=== PATIENT | female | born 1930 | race Caucasian/White ===

== ENCOUNTER → 2019-01-09 | Outpatient (RCR) | payer BC | END | disposition home or self-care (01) | LOC: WCC 13:21 | DX: L97.823 Non-pressure chronic ulcer of other part of left lower leg with necrosis of muscle (principal); L97.822 Non-pressure chronic ulcer of other part of left lower leg with fat layer exposed; R60.9 Edema, unspecified; Z79.82 Long term (current) use of aspirin; Z79.899 Other long term (current) drug therapy; R05 Cough; Z99.81 Dependence on supplemental oxygen; M16.0 Bilateral primary osteoarthritis of hip; Z88.8 Allergy status to other drugs, medicaments and biological substances | CPT/HCPCS: 11043 ==

== ENCOUNTER 2019-01-21 12:03 | Outpatient (RCR) | payer BC ==
[~2019-01-21] VITALS: Ht 152.4 cm; Wt 68.0 kg
[2019-01-29] MEDS ORDERED: Lidocaine 4% Top Soln 50ml TOPIC ONE (11:15)
== END 2019-02-09 | disposition home or self-care (01) ==
LOC: WCC 12:03
DX: L97.822 Non-pressure chronic ulcer of other part of left lower leg with fat layer exposed (principal); I87.312 Chronic venous hypertension (idiopathic) with ulcer of left lower extremity; R60.9 Edema, unspecified; Z99.81 Dependence on supplemental oxygen; Z88.2 Allergy status to sulfonamides; M16.0 Bilateral primary osteoarthritis of hip; Z79.82 Long term (current) use of aspirin; Z79.899 Other long term (current) drug therapy
CPT/HCPCS: 11042; 11045; 29580

== ENCOUNTER 2019-02-18 12:51 | Outpatient (RCR) | payer BC ==
[~2019-02-18] VITALS: Ht 152.4 cm; Wt 68.0 kg
== END 2019-03-11 | disposition home or self-care (01) ==
LOC: WCC 12:51
DX: L97.321 Non-pressure chronic ulcer of left ankle limited to breakdown of skin (principal); I87.312 Chronic venous hypertension (idiopathic) with ulcer of left lower extremity; L97.822 Non-pressure chronic ulcer of other part of left lower leg with fat layer exposed; R60.9 Edema, unspecified; L03.116 Cellulitis of left lower limb; Z79.82 Long term (current) use of aspirin; Z79.899 Other long term (current) drug therapy; M16.0 Bilateral primary osteoarthritis of hip
CPT/HCPCS: 11042; 11043; 11045; 11046; 87070; 87181; 87205

== ENCOUNTER 2019-03-18 11:01 | Outpatient (RCR) | payer BC | END 2019-04-11 | disposition home or self-care (01) | LOC: WCC 11:01 | DX: L97.822 Non-pressure chronic ulcer of other part of left lower leg with fat layer exposed (principal); L03.116 Cellulitis of left lower limb; R60.9 Edema, unspecified; I87.312 Chronic venous hypertension (idiopathic) with ulcer of left lower extremity; Z88.2 Allergy status to sulfonamides; Z79.899 Other long term (current) drug therapy; Z79.82 Long term (current) use of aspirin; M16.0 Bilateral primary osteoarthritis of hip | CPT/HCPCS: 11042; 11045; 15271; 15272; 29581; Q4106; Q4101 ==

== ENCOUNTER 2019-04-15 11:04 | Outpatient (RCR) | payer BC | END 2019-05-11 | disposition home or self-care (01) | LOC: WCC 11:04 | DX: L97.822 Non-pressure chronic ulcer of other part of left lower leg with fat layer exposed (principal); L03.116 Cellulitis of left lower limb; R60.9 Edema, unspecified; I87.312 Chronic venous hypertension (idiopathic) with ulcer of left lower extremity; Z88.2 Allergy status to sulfonamides | CPT/HCPCS: 11042; 11045; 15271; 29581; G0463; Q4106; Q4101 ==

== ENCOUNTER 2019-05-13 08:31 | Outpatient (RCR) | payer BC ==
[~2019-05-13] VITALS: Ht 152.4 cm; Wt 68.0 kg
== END 2019-06-11 | disposition home or self-care (01) ==
LOC: WCC 08:31
DX: L97.822 Non-pressure chronic ulcer of other part of left lower leg with fat layer exposed (principal); L03.116 Cellulitis of left lower limb; R60.9 Edema, unspecified; I87.312 Chronic venous hypertension (idiopathic) with ulcer of left lower extremity; Z88.2 Allergy status to sulfonamides; M16.0 Bilateral primary osteoarthritis of hip; Z79.82 Long term (current) use of aspirin; Z79.899 Other long term (current) drug therapy
CPT/HCPCS: 11042; 11045; 15271; G0463; Q4106; Q4101

== ENCOUNTER 2019-06-17 11:10 | Outpatient (RCR) | payer BC | END 2019-07-12 | disposition home or self-care (01) | LOC: WCC 11:10 | DX: L97.822 Non-pressure chronic ulcer of other part of left lower leg with fat layer exposed (principal); L03.116 Cellulitis of left lower limb; R60.9 Edema, unspecified; I87.312 Chronic venous hypertension (idiopathic) with ulcer of left lower extremity; Z88.2 Allergy status to sulfonamides; M16.0 Bilateral primary osteoarthritis of hip; Z79.82 Long term (current) use of aspirin; Z79.899 Other long term (current) drug therapy | CPT/HCPCS: 11042; 11045; 15271; Q4106; Q4101 ==

== ENCOUNTER 2019-07-11 10:49 | Outpatient (CLI) | payer BC ==
--- NOTE | 2019-07-11 14:39 | Diagnostic Imaging Report ---
Indication: Left leg nonhealing wounds edema and pain Technique: Grayscale and duplex images of the bilateral lower extremity artery Comparison: none Findings: Exam is somewhat limited due to patient body habitus. On the right, biphasic waveforms with sharp systolic peaks are demonstrated at the level of the common femoral artery. Proximal superficial femoral artery waveforms are monophasic, but systolic peaks remain sharp without diminution of flow velocities. There is focal area of elevated flow velocities in the mid superficial femoral artery, beyond which waveforms are dampened and flow velocities are decreased. There is similar dampening of the waveforms and decreased flow velocities involving the tibial vessels. On the left, common femoral, profunda femoral, and superficial femoral artery waveforms are monophasic. There is an area of flow velocity elevation in the distal superficial femoral artery. There is some loss of amplitude of the popliteal waveforms, and further loss of amplitude of the tibial vessel waveforms. 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 On the left, elevated flow velocities in the distal superficial femoral artery suggest significant stenosis. There is dampening of the distal waveforms. There is increased dampening of the distal tibial vessel waveforms suggesting ischemia at rest, and significant tibial vessel disease is possible
--- NOTE | 2019-07-11 14:46 | Diagnostic Imaging Report ---
Indication: Left leg pain and edema, open wound, nonhealing Technique: Grayscale and duplex images of the bilateral lower extremity veins Comparison: none Findings: Bilaterally, grayscale and duplex images demonstrate no evidence of intraluminal thrombus. Doppler waveforms demonstrate normal phasicity and augmentation response. There is evidence of reflux within the greater saphenous vein, superficial femoral vein, and popliteal vein. There is also evidence of reflux in the left common femoral vein, left greater saphenous vein, left superficial femoral vein and popliteal vein. Normal compressibility. Impression: Negative for evidence of lower extremity deep venous thrombosis bilaterally Evidence of bilateral superficial and deep vein reflux, presumably indicating valvular insufficiency.
== END 2019-07-11 12:49 | disposition home or self-care (01) ==
LOC: VAS 10:49
DX: R60.0 Localized edema (principal); M79.605 Pain in left leg
CPT/HCPCS: 93925; 93970

== ENCOUNTER 2019-07-15 09:18 | Outpatient (RCR) | payer BC | END 2019-08-10 | disposition home or self-care (01) | LOC: WCC 09:18 | DX: L97.822 Non-pressure chronic ulcer of other part of left lower leg with fat layer exposed (principal); L03.116 Cellulitis of left lower limb; R60.9 Edema, unspecified; I87.312 Chronic venous hypertension (idiopathic) with ulcer of left lower extremity; M16.0 Bilateral primary osteoarthritis of hip; Z79.82 Long term (current) use of aspirin | CPT/HCPCS: 11042; 11045; 87070; 87205 ==

== ENCOUNTER 2019-08-12 10:15 | Outpatient (RCR) | payer BC ==
[~2019-08-12] VITALS: Ht 152.4 cm; Wt 68.0 kg
[2019-09-02] MEDS ORDERED: Lidocaine 2% 20mg/ml/EPI 0.01mg/ml 20ml IV ONE (16:45)
== END 2019-09-10 | disposition home or self-care (01) ==
LOC: WCC 10:15
DX: L97.822 Non-pressure chronic ulcer of other part of left lower leg with fat layer exposed (principal); L03.116 Cellulitis of left lower limb; R60.9 Edema, unspecified; I87.312 Chronic venous hypertension (idiopathic) with ulcer of left lower extremity; L88 Pyoderma gangrenosum; Z88.2 Allergy status to sulfonamides; M16.0 Bilateral primary osteoarthritis of hip; Z79.82 Long term (current) use of aspirin; Z79.899 Other long term (current) drug therapy
CPT/HCPCS: 11042; 11045

== ENCOUNTER 2019-09-16 11:31 | Outpatient (RCR) | payer BC | END 2019-10-10 | disposition home or self-care (01) | LOC: WCC 11:31 | DX: L97.822 Non-pressure chronic ulcer of other part of left lower leg with fat layer exposed (principal); L03.116 Cellulitis of left lower limb; R60.9 Edema, unspecified; I87.312 Chronic venous hypertension (idiopathic) with ulcer of left lower extremity; L88 Pyoderma gangrenosum; L97.819 Non-pressure chronic ulcer of other part of right lower leg with unspecified severity; Z88.2 Allergy status to sulfonamides; I70.248 Atherosclerosis of native arteries of left leg with ulceration of other part of lower leg | CPT/HCPCS: 11042; 11043; 11045; 11046; 87070; 87181; 87205 ==

== ENCOUNTER 2019-10-14 11:09 | Outpatient (RCR) | payer BC | END 2019-11-10 | disposition home or self-care (01) | LOC: WCC 11:09 | DX: L97.822 Non-pressure chronic ulcer of other part of left lower leg with fat layer exposed (principal); L03.116 Cellulitis of left lower limb; R60.9 Edema, unspecified; I87.312 Chronic venous hypertension (idiopathic) with ulcer of left lower extremity; L88 Pyoderma gangrenosum; L97.819 Non-pressure chronic ulcer of other part of right lower leg with unspecified severity; Z88.2 Allergy status to sulfonamides; I70.248 Atherosclerosis of native arteries of left leg with ulceration of other part of lower leg; Z91.14 Patient's other noncompliance with medication regimen; M19.90 Unspecified osteoarthritis, unspecified site | CPT/HCPCS: 11042; 11043; 11045; 11046; 87070; 87181; 87205 ==

== ENCOUNTER 2019-11-11 10:13 | Outpatient (RCR) | payer BC ==
[~2019-11-11] VITALS: Ht 152.4 cm; Wt 68.0 kg
== END 2019-12-10 | disposition home or self-care (01) ==
LOC: WCC 10:13
DX: L97.822 Non-pressure chronic ulcer of other part of left lower leg with fat layer exposed (principal); L03.116 Cellulitis of left lower limb; R60.9 Edema, unspecified; I87.312 Chronic venous hypertension (idiopathic) with ulcer of left lower extremity; L88 Pyoderma gangrenosum; L97.819 Non-pressure chronic ulcer of other part of right lower leg with unspecified severity; Z88.2 Allergy status to sulfonamides; I70.248 Atherosclerosis of native arteries of left leg with ulceration of other part of lower leg; M16.0 Bilateral primary osteoarthritis of hip; Z79.82 Long term (current) use of aspirin; Z79.899 Other long term (current) drug therapy
CPT/HCPCS: 11042; 11045

== ENCOUNTER 2019-12-16 11:13 | Outpatient (RCR) | payer BC | END 2020-01-10 | disposition home or self-care (01) | LOC: WCC 11:13 | DX: L97.822 Non-pressure chronic ulcer of other part of left lower leg with fat layer exposed (principal); L03.116 Cellulitis of left lower limb; R60.9 Edema, unspecified; I87.312 Chronic venous hypertension (idiopathic) with ulcer of left lower extremity; L88 Pyoderma gangrenosum; L97.819 Non-pressure chronic ulcer of other part of right lower leg with unspecified severity; Z88.2 Allergy status to sulfonamides; I70.248 Atherosclerosis of native arteries of left leg with ulceration of other part of lower leg | CPT/HCPCS: 11042; 11045; 87070; 87181; 87205 ==

== ENCOUNTER 2020-01-13 13:17 | Outpatient (RCR) | payer BC | END 2020-02-10 | disposition home or self-care (01) | LOC: WCC 13:17 | DX: L97.822 Non-pressure chronic ulcer of other part of left lower leg with fat layer exposed (principal); L03.116 Cellulitis of left lower limb; R60.9 Edema, unspecified; I87.312 Chronic venous hypertension (idiopathic) with ulcer of left lower extremity; L88 Pyoderma gangrenosum; L97.819 Non-pressure chronic ulcer of other part of right lower leg with unspecified severity; Z88.2 Allergy status to sulfonamides; I70.248 Atherosclerosis of native arteries of left leg with ulceration of other part of lower leg | CPT/HCPCS: 11042; 11045 ==

== ENCOUNTER 2020-02-24 13:09 | Outpatient (RCR) | payer BC | END 2020-03-11 | disposition home or self-care (01) | LOC: WCC 13:09 | DX: L97.822 Non-pressure chronic ulcer of other part of left lower leg with fat layer exposed (principal); L03.116 Cellulitis of left lower limb; R60.9 Edema, unspecified; I87.312 Chronic venous hypertension (idiopathic) with ulcer of left lower extremity; L88 Pyoderma gangrenosum; L97.819 Non-pressure chronic ulcer of other part of right lower leg with unspecified severity; Z88.2 Allergy status to sulfonamides; I70.248 Atherosclerosis of native arteries of left leg with ulceration of other part of lower leg; M16.0 Bilateral primary osteoarthritis of hip; Z79.82 Long term (current) use of aspirin; Z79.899 Other long term (current) drug therapy | CPT/HCPCS: 11042; 11045; 87070; 87181; 87205 ==

== ENCOUNTER 2020-03-16 13:05 | Outpatient (RCR) | payer BC ==
[~2020-03-16] VITALS: Ht 152.4 cm; Wt 68.0 kg
[2020-04-08] MEDS ORDERED: Lidocaine 4% Top Soln 50ml TOPIC ONE (16:00)
== END 2020-04-11 | disposition home or self-care (01) ==
LOC: WCC 13:05
DX: L97.822 Non-pressure chronic ulcer of other part of left lower leg with fat layer exposed (principal); L03.116 Cellulitis of left lower limb; R60.9 Edema, unspecified; I87.312 Chronic venous hypertension (idiopathic) with ulcer of left lower extremity; L88 Pyoderma gangrenosum; L97.819 Non-pressure chronic ulcer of other part of right lower leg with unspecified severity; Z88.2 Allergy status to sulfonamides; I70.248 Atherosclerosis of native arteries of left leg with ulceration of other part of lower leg; M16.0 Bilateral primary osteoarthritis of hip; Z79.82 Long term (current) use of aspirin; Z79.899 Other long term (current) drug therapy
CPT/HCPCS: 11042; 11045

== ENCOUNTER 2020-04-13 09:05 | Outpatient (RCR) | payer BC ==
[~2020-04-13] VITALS: Ht 152.4 cm; Wt 68.0 kg
[2020-05-05] MEDS ORDERED: Lidocaine 4% Top Soln 50ml TOPIC ONE (13:15)
== END 2020-05-11 | disposition home or self-care (01) ==
LOC: WCC 09:05
DX: L97.822 Non-pressure chronic ulcer of other part of left lower leg with fat layer exposed (principal); L03.116 Cellulitis of left lower limb; R60.9 Edema, unspecified; I87.312 Chronic venous hypertension (idiopathic) with ulcer of left lower extremity; L88 Pyoderma gangrenosum; L97.819 Non-pressure chronic ulcer of other part of right lower leg with unspecified severity; Z88.2 Allergy status to sulfonamides; I70.248 Atherosclerosis of native arteries of left leg with ulceration of other part of lower leg; M16.0 Bilateral primary osteoarthritis of hip; Z79.82 Long term (current) use of aspirin
CPT/HCPCS: 11042; 11045; 87070; 87181; 87205

== ENCOUNTER 2020-05-18 10:30 | Outpatient (RCR) | payer BC ==
[~2020-05-18] VITALS: Ht 152.4 cm; Wt 68.0 kg
[2020-05-21] MEDS ORDERED: Lidocaine 4% Top Soln 50ml TOPIC ONE (10:00)
[2020-05-26] MEDS ORDERED: Lidocaine 4% Top Soln 50ml TOPIC ONE (14:45)
[2020-06-03] MEDS ORDERED: Lidocaine 4% Top Soln 50ml TOPIC ONE (13:00)
[2020-06-03] MEDS ORDERED: Lidocaine 2% MPF 5ml Vial INJ ONE (13:00)
[2020-06-11] MEDS ORDERED: Lidocaine 4% Top Soln 50ml TOPIC ONE (09:30)
== END 2020-06-11 | disposition home or self-care (01) ==
LOC: WCC 10:30
DX: L97.822 Non-pressure chronic ulcer of other part of left lower leg with fat layer exposed (principal); L03.116 Cellulitis of left lower limb; R60.9 Edema, unspecified; I87.312 Chronic venous hypertension (idiopathic) with ulcer of left lower extremity; L88 Pyoderma gangrenosum; L97.819 Non-pressure chronic ulcer of other part of right lower leg with unspecified severity; Z88.2 Allergy status to sulfonamides; I70.248 Atherosclerosis of native arteries of left leg with ulceration of other part of lower leg; L97.825 Non-pressure chronic ulcer of other part of left lower leg with muscle involvement without evidence of necrosis; L97.811 Non-pressure chronic ulcer of other part of right lower leg limited to breakdown of skin; M16.0 Bilateral primary osteoarthritis of hip; Z79.82 Long term (current) use of aspirin
CPT/HCPCS: 11042; 11043; 11045; 11046; 87070; 87181; 87205; G0463

== ENCOUNTER 2020-06-15 11:09 | Outpatient (RCR) | payer BC ==
[~2020-06-15] VITALS: Ht 152.4 cm; Wt 68.0 kg
[~2020-06-15 11:09] MED LIST: Lidocaine 2% MPF 5ml Vial INJ ONE
[2020-07-03] MEDS ORDERED: Lidocaine 4% Top Soln 50ml TOPIC ONE (14:30)
[2020-07-03] MEDS ORDERED: Lidocaine 2% MPF 5ml Vial INJ ONE (14:30)
== END 2020-07-12 | disposition home or self-care (01) ==
LOC: WCC 11:09
DX: L97.822 Non-pressure chronic ulcer of other part of left lower leg with fat layer exposed (principal); L03.116 Cellulitis of left lower limb; R60.9 Edema, unspecified; I87.312 Chronic venous hypertension (idiopathic) with ulcer of left lower extremity; L88 Pyoderma gangrenosum; L97.819 Non-pressure chronic ulcer of other part of right lower leg with unspecified severity; Z88.2 Allergy status to sulfonamides; I70.248 Atherosclerosis of native arteries of left leg with ulceration of other part of lower leg; L97.825 Non-pressure chronic ulcer of other part of left lower leg with muscle involvement without evidence of necrosis; L97.811 Non-pressure chronic ulcer of other part of right lower leg limited to breakdown of skin; M16.0 Bilateral primary osteoarthritis of hip
CPT/HCPCS: 11043; 11046; G0463

== ENCOUNTER → 2020-06-15 | Outpatient (CLI) | payer BC ==
[2020-06-15 14:49] LABS: BASOPHILS % (AUTO) 0.7 % (0.0-2.0); EOSINOPHILS % (AUTO) 2.3 % (0.0-3.0); HEMATOCRIT 38.8 % (37.0-47.0); HEMOGLOBIN 11.9 G/DL (12.0-16.0); LYMPHOCYTES % (AUTO) 11.7 % (20.0-45.0); MEAN CORPUSCULAR VOLUME 95 FL (80-99); MONOCYTES % (AUTO) 8.3 % (1.0-10.0); NEUTROPHILS % (AUTO) 76.9 % (45.0-75.0); PLATELET COUNT 246 K/UL (150-450); RED BLOOD COUNT 4.08 M/UL (4.20-5.40); RED CELL DISTRIBUTION WIDTH 13.4 % (11.6-14.8); WHITE BLOOD COUNT 11.2 K/UL (4.8-10.8)
[2020-06-15 15:05] LABS: ANION GAP 5 mmol/L (5-15); BLOOD UREA NITROGEN 18 mg/dL (7-18); CARBON DIOXIDE 30 MMOL/L (21-32); CHLORIDE 103 MMOL/L (98-107); CREATININE 0.7 MG/DL (0.55-1.30); POTASSIUM 3.4 MMOL/L (3.5-5.1); SODIUM 138 MMOL/L (136-145)
== END | disposition home or self-care (01) ==
LOC: LAB 14:29
DX: B99.9 Unspecified infectious disease (principal)
CPT/HCPCS: 36415; 80048; 85025

== ENCOUNTER → 2020-06-19 | Outpatient (CLI) | payer BC ==
[~2020-06-19] VITALS: Ht 152.4 cm; Wt 68.0 kg
[~2020-06-19] MED LIST changes: +Heparin1,000 units/500ml Premix(Conc:2 units/ml) IV PRN; +Lidocaine 1% Plain 30 ml INJ PRN; -Lidocaine 2% MPF 5ml Vial INJ ONE
--- NOTE | 2020-06-19 15:11 | Pre-Procedure Note/Attestation ---
Pre-Procedure Note/Attestation Complete Prior to Procedure Planned Procedure: not applicable Procedure Narrative: PICC Indications for Procedure Pre-Operative Diagnosis: needs IV abx Attestation I attest that I discussed the nature of the procedure; its benefits; risks and complications; and alternatives (and the risks and benefits of such alternatives), prior to the procedure, with the patient (or the patient's legal circulation sales representative). I attest that, if there was a reasonable possibility of needing a blood transfu paco, the patient (or the patient's legal circulation sales representative) was given the [facility] standardized written summary, pursuant to the Shayne [employer] Blood Safety Act ([place] Health and Safety Code # 1645, as amended). I attest that I re-evaluated the patient just prior to the surgery and that there has been no change in the patient's H&P, except as documented below: Jarrett Galvez MD Jun 19, 2020 15:10
--- NOTE | 2020-06-19 15:12 | Brief Operative Note ---
Immediate Post Operative Note Operative Note Pre-op Diagnosis: needs IV abx Procedure: PICC Post-op Diagnosis: same as pre-op Surgeon: Juliana Maddox Anesthesia: local Specimen: none Complications: none Condition: stable Fluids: none Implant(s) used?: No Jarrett Maddox MD Jun 19, 2020 15:11
--- NOTE | 2020-06-19 17:47 | Diagnostic Imaging Report ---
Indications: Needs long-term IV access Technique: Ultrasound confirms patent compressible right basilic vein. Total sterile technique, including sterile probe cover and sterile gel, hat, mask, sterile gown, large sterile drape, and preparation with 2% chlorhexidine utilized. Local anesthesia with 1% lidocaine. Under real-time ultrasound guidance with direct visualization of the needle entering the vein, puncture basilic vein using 21-gauge needle, documented and archived, passage 0.018 guidewire under direct fluoroscopy, which was used to determine appropriate catheter length, exchange for 4 Haitian peel-away sheath. 4 Haitian Bard dual-lumen power PICC cut to 36 cm. It was inserted through the peel-away sheath. Peel-away sheath and guidewire removed. Catheter fixed to the skin. Both catheter ports aspirated and flushed. Patient tolerated procedure well, without immediate complication. Digital radiograph documents satisfactory catheter tip position, at the cavoatrial junction. Total fluoroscopy time 19.6 seconds. Total dose area product 2.3 mGym2 Total number of images: 1 Impression: Successful placement of right arm PICC under sonographic and fluoroscopic guidance, as described above.
--- NOTE | 2020-06-19 19:46 | NUR ---
RADIOLOGY NOTE: RIGHT UPPER EXTREMITY PICC LINE PLACEMENT BY DR. YARELIS NAJERA AT [id number] HRS. FA
== END | disposition home or self-care (01) ==
LOC: EDSTATUS 13:00 → RAD 13:00
DX: Z79.899 Other long term (current) drug therapy (principal); B99.9 Unspecified infectious disease
CPT/HCPCS: 36569; 76937; J1644; J2001